=== PATIENT | male | born 1960 | race African-American/Black ===

== ENCOUNTER 2018-05-21 20:07 | Emergency (ER) | payer OTHER | END 2018-05-22 01:00 | disposition home or self-care (01) | LOC: JER 05-22 01:00 ==

== ENCOUNTER 2018-10-13 05:22 | Emergency (ER) | payer OTHER ==
[2018-10-13 06:03] VITALS: BP 142/85; PULSE 60; TEMP 98.5; BMI 34.4
[2018-10-13] MEDS ORDERED: ACETAMINOPHEN 500 MG TABLET (FP) PO ONE (06:13)
--- NOTE | 2018-10-13 06:13 | PDOC ---
History of Present Illness - General Stated Complaint: NECK/ARM PAIN Time Seen by Provider: 10/13/18 05:54 History Source: Patient, Old Records Exam Limitations: No Limitations - History of Present Illness Initial Comments: 10/13/18 06:15 HISTORY OF PRESENT ILLNESS: This is a 58-year-old male with past medical history of paroxysmal A. fib, bilateral knee surgeries, cholecystectomy, mitral valve replacement 2013, lumbar discectomy presents emergency room for evaluation of upper back pain radiating to his right arm. Patient reports pain has been present for the past 2 days he describes as a tightness with a shooting sensation into his shoulder and radiating down his right arm. Patient denies any numbness or tingling or loss of strength. Patient denies trauma, fevers, chills, shortness of breath, headache, blurry vision or dizziness. No recent travel or sick contacts. PAST MEDICAL HISTORY: see HPI SURGICAL HISTORY: see HPI ALLERGIES: No known drug allergies REVIEW OF SYSTEMS General/Constitutional: Denies fever or chills. Denies weakness, weight change. HEENT: Denies change in vision. Denies ear pain or discharge. Denies sore throat. Cardiovascular: Denies chest pain or shortness of breath. Respiratory: Denies cough, wheezing, or hemoptysis. Gastrointestinal: Denies nausea, vomiting, diarrhea or constipation. Denies rectal bleeding. Genitourinary: Denies dysuria, frequency, or change in urination. Musculoskeletal: see HPI Skin and breasts: Denies rash or easy bruising. Neurologic: Denies headache, vertigo, loss of consciousness, or loss of sensation. Psychiatric: Denies depression or anxiety. Endocrine: Denies increased thirst. Denies abnormal weight change. Hematologic/Lymphatic: Denies anemia, easy bleeding, or history of blood clots. Allergic/Immunologic: Denies hives or skin allergy. Denies latex allergy. PHYSICAL EXAM General Appearance: Well-appearing, appropriately dressed. No apparent distress , no intoxication. HEENT: EOMI, PERRLA, normal ENT inspection, normal voice, TMs normal, pharynx normal. No conjunctival pallor. No photophobia, scleral icterus. Neck: Supple. Trachea midline. No tenderness, rigidity, carotid bruit, stridor , lymphadenopathy, or thyromegaly. Full active range of motion. Respiratory/Chest: Lungs CTAB. No shortness of breath, chest tenderness, respiratory distress, accessory muscle use. No crackles, rales, rhonchi, stridor , wheezing, dullness Cardiovascular: RRR. S1, S2. No JVD, murmur, bradycardia, tachycardia. Vascular Pulses: Dorsalis-Pedis (R): 2+, Dorsalis-Pedis (L): 2+ Musculoskeletal/Extremities: Normal inspection. FROM of all extremities, normal capillary refill. Palpable muscle spasm noted in the right trapezius. No bony tenderness upon palpation of the scapula, humerus, clavicle or thoracic and cervical spines. Integumentary: Appropriate color, dry, warm. No cyanosis, erythema, jaundice or rash Neurologic: allergist/immunologist II-XII intact. Fully oriented, alert. Appropriate mood/affect. Motor strength 5/5. No appreciable EOM palsy, facial droop or sensory deficit. Past History - Past Medical History Allergies/Adverse Reactions: Allergies Allergy/AdvReac Type Severity Reaction Status Date / Time immune globulin,gamma (IgG) Allergy Verified 05/21/18 20:25 human [Immu Globulin,Gamma (IGG)] gammaglobulin -> rash Allergy Mild Rash Uncoded 05/21/18 20:25 Home Medications: Ambulatory Orders Aspirin Coated [Ecotrin -] 81 mg PO DAILY 04/04/14 Metoprolol Tartrate 50 mg PO BID 04/04/14 Methocarbamol [Robaxin -] 1,500 mg PO Q8H PRN #30 tablet 10/13/18 Asthma: No Cancer: No Cardiac Disorders: Yes (A-FIB) CVA: No COPD: No CHF: No Dementia: No Diabetes: No GI Disorders: No Disorders: No HTN: No Hypercholesterolemia: No Liver Disease: No Seizures: No Thyroid Disease: No - Surgical History Abdominal Surgery: No Appendectomy: No Cardiac Surgery: Yes (open heart sx 2012 with valve placement) Cholecystectomy: No Lung Surgery: No Neurologic Surgery: No Orthopedic Surgery: Yes (left anfd right knee sx,discectomy) - Immunization History Immunization Up to Date: Yes - Suicide/Smoking/Psychosocial Hx Smoking Status: No Smoking History: Never smoked Have you smoked in the past 12 months: No Number of Cigarettes Smoked Daily: 0 Cigars Per Day: 0 Hx Alcohol Use: No Drug/Substance Use Hx: No Substance Use Type: None Hx Substance Use Treatment: No *Physical Exam - Vital Signs Last Vital Signs Temp Pulse Resp BP Pulse Ox 98.5 F 60 20 142/85 98 10/13/18 06:00 10/13/18 06:00 10/13/18 06:00 10/13/18 06:00 10/13/18 06:00 Medical Decision Making - Medical Decision Making 10/13/18 06:20 A/P: 58-year-old male with muscle spasms in the right trapezius Patient lives in [place] and will be driving home today. I will defer any narcotic medication or muscle relaxers. Recent labs reveals slightly elevated creatinine level hold off on NSAIDs. Tylenol 975 mg orally now Decadron 10 mg orally now We'll discharge the patient home with prescription for Robaxin which she has refills at his pharmacy in [place]. *DC/Admit/Observation/Transfer Diagnosis at time of Disposition: Muscle spasm of back - Discharge Dispostion Disposition: HOME Condition at time of disposition: Stable Decision to Admit order: No - Prescriptions Prescriptions: Methocarbamol [Robaxin -] 1,500 mg PO Q8H PRN #30 tablet PRN Reason: Muscle Spasms - Referrals Referrals: Adan Calderón MD [Primary Care Provider] - - Patient Instructions Additional Instructions: Rest, no heavy lifting or exercise until pain is resolved Hot soaks to neck and low back as often as possible/hot showers or Jacuzzis No massage or therapy until spasm is gone Continue tylenol 2-500 mg tablets every 6 hours for the next 3 days then as needed for pain and swelling Robaxin 1500mg every 8 hours as needed for spasm If not significant improvement within 24 hours with medication and rest regime, followup with private physician for change in medications and /or therapy. - Post Discharge Activity Forms/Work/School Notes: Back to Work
[2018-10-13] MEDS ORDERED: DEXAMETHASONE LIQUID 0.5 MG/5 ML 240 ML BULK BOTTLE PO ONE (06:14)
[2018-10-13] MEDS ORDERED: DEXAMETHASONE SOD PHOSPHATE 10 MG/1 ML VIAL ONE (06:19)
[2018-10-13] MEDS ORDERED: ACETAMINOPHEN 325 MG TABLET (FP) ONE (06:19)
== END 2018-10-13 06:53 | disposition home or self-care (01) ==
LOC: JER 05:22
DX: M62.830 Muscle spasm of back (principal); I48.0 Paroxysmal atrial fibrillation; Z79.01 Long term (current) use of anticoagulants; Z95.4 Presence of other heart-valve replacement
CPT/HCPCS: 99281-25

== ENCOUNTER 2019-10-29 06:54 | Day surgery (SDC) | payer OTHER ==
[2019-10-24 11:12] VITALS: BMI 34.4
[2019-10-29] MEDS ORDERED: MIDAZOLAM HCL 2 MG/2 ML SINGLE DOSE VIAL ONE (07:39)
[2019-10-29 08:40] VITALS: TEMP 98
[2019-10-29 09:31] VITALS: BP 116/67; PULSE 61
--- NOTE | 2019-10-29 09:53 | EKG ---
Test Reason : Blood Pressure : / mmHG Vent. Rate : 059 BPM Atrial Rate : 059 BPM P-R Int : 164 ms QRS Dur : 082 ms QT Int : 482 ms P-R-T Axes : 059 041 054 degrees QTc Int : 477 ms SINUS BRADYCARDIA NONSPECIFIC T WAVE ABNORMALITY PROLONGED QT ABNORMAL ECG Confirmed by MD LORENA, TERRELL ([id number]) on 10/29/2019 9:52:35 AM Referred By: Satya CHILDERS Confirmed By:TERRELL CARRILLO MD
== END 2019-10-29 09:32 | disposition home or self-care (01) ==
LOC: JASU-ENDO 06:54
PROVIDERS: ATTEND Internal Medicine Cardiovascular Disease
PROC: 5A2204Z Restoration of Cardiac Rhythm, Single (ICD-10-PCS; principal; 2019-10-29 08:00)
DX: I48.91 Unspecified atrial fibrillation (principal)
CPT/HCPCS: 92960; 93005; 93010

== ENCOUNTER 2019-11-07 19:02 | Inpatient (IN) | payer OTHER ==
--- NOTE | 2019-11-07 19:26 | PDOC ---
History of Present Illness - General Chief Complaint: Shortness of Breath Stated Complaint: SHORTNESS OF BREATH Time Seen by Provider: 11/07/19 19:25 - History of Present Illness Initial Comments: Patient is a 59 YOM h/o atrial fibrillation s/p valve repair surgery many years prior presents with palpatations of since this afternoon. Patient reports that 9 days prior to arrival he received cardioversion for atrial fibrillation. He has felt fine since then until this afternoon when he came to work and began to feel "tachycardic". He came to the ED for evaluation. He reports that he takes metoprolol which he took today and eloquis for thrombosis prophylaxis. He says he feels slightly short of breath and also mentions a recent bout of diarrhea earlier today. He denies CP, N/V, fever or chills. Constitutional: No Weight Change, No Fever, No Chills, No Night Sweats, No Fatigue, No Malaise ENT/Mouth: No Hearing Changes, No Ear Pain, No Nasal Congestion, No Sinus Pain, No Hoarseness, No sore throat, No Rhinorrhea, No Swallowing Difficulty Eyes: No Eye Pain, No Swelling, No Redness, No Foreign Body, No Discharge, No Vision Changes Cardiovascular: No Chest Pain, mild SOB, No PND, No Dyspnea on Exertion, No Orthopnea, No Claudication, No Edema, yes Palpitations Respiratory: No Cough, No Sputum, No Wheezing, No Smoke Exposure, No Dyspnea Gastrointestinal: No Nausea, No Vomiting, No Diarrhea, No Constipation, No Pain, No Heartburn, No Anorexia, No Dysphagia, No Hematochezia, No Melena, No Flatulence, No Jaundice Genitourinary: No Dysmenorrhea, No DUB, No Dyspareunia, No Dysuria, No Urinary Frequency, No Hematuria, No Urinary Incontinence, No Urgency, No Flank Pain, No Urinary Flow Changes, No Hesitancy Musculoskeletal: No Arthralgias, No Myalgias, No Joint Swelling, No Joint Stiffness, No Back Pain, No Neck Pain, No Injury History Skin: No Skin Lesions, No Pruritis, No Hair Changes, No Breast/Skin Changes, No Nipple Discharge Neuro: No Weakness, No Numbness, No Paresthesias, No Loss of Consciousness, No Syncope, No Dizziness, No Headache, No Coordination Changes, No Recent Falls Psych: No Anxiety/Panic, No Depression, No Insomnia, No Personality Changes, No Delusions, No Rumination, No SI/HI/AH/VH, No Social Issues, No Memory Changes, No Violence/Abuse Hx., No Eating Concerns Heme/Lymph: No Bruising, No Bleeding, No Transfusions History, No Lymphadenopathy Endocrine: No Polyuria, No Polydipsia, No Temperature Intolerance 11/07/19 23:07 Past History - Medical History Allergies/Adverse Reactions: Allergies Allergy/AdvReac Type Severity Reaction Status Date / Time immune globulin,gamma (IgG) Allergy Verified 11/07/19 19:14 human [Immu Globulin,Gamma (IGG)] gammaglobulin -> rash Allergy Mild Rash Uncoded 11/07/19 19:14 Home Medications: Ambulatory Orders Apixaban [Eliquis -] 5 mg PO BID #60 tablet 09/14/19 Dronedarone HCl [Multaq] 400 mg PO BID 10/22/19 Metoprolol Succinate [Toprol XL -] 100 mg PO BID 10/22/19 Amiodarone HCl 200 mg PO BID #1 tablet 10/29/19 Anemia: No Asthma: No Cancer: No Cardiac Disorders: Yes (ATRIAL FIBRILLATION,MITRAL VALVE REGURGITATION,PROLAPSE) CVA: No COPD: No CHF: No Dementia: No Diabetes: No GI Disorders: Yes Disorders: No HTN: No Hypercholesterolemia: No Liver Disease: No Seizures: No Thyroid Disease: No - Surgical History Abdominal Surgery: No Appendectomy: No Cardiac Surgery: Yes (S/P MITRAL VALVE REPAIR) Cholecystectomy: Yes Lung Surgery: No Neurologic Surgery: No Orthopedic Surgery: Yes (left anfd right knee sx,discectomy) - Immunization History Immunization Up to Date: Yes - Psycho-Social/Smoking History Smoking Status: No Smoking History: Never smoked Have you smoked in the past 12 months: No Number of Cigarettes Smoked Daily: 0 Cigars Per Day: 0 Information on smoking cessation initiated: No - Substance Abuse Hx (Audit-C & DAST Scrn) How often the patient has a drink containing alcohol: Never Score: In Men: 4 or > Positive; In Women: 3 or > Positive: 0 Screen Result (Pos requires Nsg. Audit-10AR): Negative In the last yr the pt used illegal drug/Rx for NonMed reason: No Score: Yes response is considered Positive: 0 Screen Result (Positive result requires Nsg. DAST-10): Negative *Physical Exam - Vital Signs Last Vital Signs Temp Pulse Resp BP Pulse Ox 98.2 F 121 H 22 H 125/93 97 11/07/19 19:14 11/07/19 19:14 11/07/19 19:14 11/07/19 19:14 11/07/19 19:14 - Physical Exam General Appearance: Yes: Nourished, Appropriately Dressed HEENT: positive: EOMI, ALFONSO Neck: positive: Trachea midline, Normal Thyroid Respiratory/Chest: positive: Lungs Clear, Normal Breath Sounds Cardiovascular: positive: Regular Rhythm, Regular Rate, S1, S2 Gastrointestinal/Abdominal: positive: Normal Bowel Sounds, Flat, Soft Musculoskeletal: positive: Normal Inspection Extremity: positive: Normal Capillary Refill, Normal Inspection, Normal Range of Motion Integumentary: positive: Normal Color, Dry, Warm Neurologic: positive: corporate lawyer II-XII NML intact, Fully Oriented, Normal Response, Motor Strength 5/5 ED Treatment Course - LABORATORY CBC & Chemistry Diagram: 11/07/19 20:18 11/07/19 20:18 Medical Decision Making - Medical Decision Making Patient is a 59 YOM h/o atrial fibrillation s/p valve repair surgery many years prior presents with palpatations of since this afternoon. Patient reports that 9 days prior to arrival he received cardioversion for atrial fibrillation. He has felt fine since then until this afternoon when he came to work and began to feel "tachycardic". He came to the ED for evaluation. He reports that he takes metoprolol which he took today and eloquis for thrombosis prophylaxis. He says he feels slightly short of breath and also mentions a recent bout of diarrhea earlier today. He denies CP, N/V, fever or chills. Patients HR was 110-120s on arrival, O2 saturation was 98% on room air, vitals were otherwise wnl. Physical exam was unremarkable. ddx includes but is not limited to: Afib with RVR, atrial flutter, sinus tachycardia, dehydration. plan: EKG, CXR, cardiac profile, CBC, CMP, COVID-19 swab,Will consult his tool shaper setup operator, Dr Marcelo and appreciate his recommendations. reassess: EKG demonstrated atrial flutter in leads V1 and V2. Spoke with Dr Marcelo who reviewed the patients EKG and mentioned that in V1 there was an inflection after the Q wave with a saw tooth morphology also observable in V2, he recommended that the patients metoprolol be increased to 100mgs BID, Amiodarone 200mgs BID, and be admitted for tele obs. Labs were wnl. dispo: admit patient for telemetry. Discharge - Discharge Information Problems reviewed: Yes Clinical Impression/Diagnosis: Atrial flutter - Follow up/Referral - Patient Discharge Instructions - Post Discharge Activity
[2019-11-07] MEDS ORDERED: SODIUM CHLORIDE 0.9% 500 ML INFUS.BAG IV ONE (20:01)
[2019-11-07 20:34] LABS: BASO % 0.8 % (0-2.0); EOS % 2.5 % (0-4.5); HEMATOCRIT 44.6 % (35.4-49); HEMOGLOBIN 14.7 GM/dL (11.7-16.9); LYMPH % 19.2 % (8-40); MCHC 32.9 g/dl (32.0-35.9); MEAN CELL VOLUME 91.1 fl (80-96); MEAN PLT VOLUME 8.3 fl (7.5-11.1); MONO % 9.9 % (3.8-10.2); NEUT % 67.6 % (42.8-82.8); PLATELET COUNT 172 K/MM3 (134-434); RDW 13.8 % (11.9-15.9); WHITE BLOOD COUNT 8.1 K/mm3 (4.0-10.0)
[2019-11-07 20:50] LABS: ALBUMIN 3.7 g/dl (3.4-5.0); ALK PHOS 62 U/L (45-117); ANION GAP 7 MMOL/L (8-16); BILIRUBIN,TOTAL 0.7 mg/dL (0.2-1); BLOOD UREA NITROGEN 9.6 mg/dL (7-18); CALCIUM 8.2 mg/dL (8.5-10.1); CHLORIDE 112 mmol/L (98-107); CO2 25 mmol/L (21-32); CREATININE 1.4 mg/dL (0.55-1.3); GLUCOSE,RANDOM 87 mg/dL (74-106); POTASSIUM 3.7 mmol/L (3.5-5.1); SGOT/AST 19 U/L (15-37); SGPT/ALT 24 U/L (13-61); SODIUM 144 mmol/L (136-145); TOT PROT 6.9 g/dl (6.4-8.2)
--- NOTE | 2019-11-07 20:52 | PDOC ---
Attending Attestation - Resident Resident Name: Myles Lockwood - ED Attending Attestation I have performed the following: I have examined & evaluated the patient, The case was reviewed & discussed with the resident, I agree w/resident's findings & plan, Exceptions are as noted - HPI HPI: 11/08/19 02:01 See resident HPI - Physicial Exam PE: 11/08/19 02:01 Agree with documented exam - Medical Decision Making 11/08/19 02:01 59M with paroxysmal AFIB on amio and metoprolol, eliquis for AC, here with recurrent AFib/flutter with RVR after recent DCCV. Pt endorsing palpitations, but no cp, sob f/u labs, cxr, ekg Rate reduced to 100-110s with po Metoprolol in consultation with Pts computer scientist Dr. Marcelo, dispo will be to admit to tele obs Discharge - Discharge Information Problems reviewed: Yes Clinical Impression/Diagnosis: Atrial flutter - Follow up/Referral - Patient Discharge Instructions - Post Discharge Activity
--- NOTE | 2019-11-08 00:51 | HP ---
Admitting History and Physical - Primary Care Physician PCP: Adan Calderón - Admission Chief Complaint: Palpitations, SOB, Diarrhea History of Present Illness: This is a 59 y/o male with a PMHx of Atrial Fibrillation s/p valve repair surgery (2012) s/p Cardioversion (9 days ago), Chronic Back Pain. Who presents to the ED with palpitations x yesterday afternoon. Patient reports feeling well since the recent Cardioversion, then this afternoon while at work he began to having palpitations with SOB. 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 He reports taking his metoprolol and Eliquis, today for thrombosis prophylaxis. he reports having an episode of diarrhea, his last meal consisted of hot dogs and meatballs from home. Patient denies fever, chills, dizziness, PÉREZ, CP, AP, N/V, melena, hematochezia, dysuria. History Source: Patient Limitations to Obtaining History: No Limitations - Past Medical History Cardiovascular: Yes: AFIB, HTN. No: CAD, CHF, Deep Vein Thrombosis, [place] Gastrointestinal: Yes: Constipation, Hemorrhoids. No: Gastritis, GERD, Peptic Ulcer Disease Musculoskeletal: Yes: Chronic low back pain (h/o acute back pain from injury) - Past Surgical History Past Surgical History: Yes: Cholecystectomy, Tonsillectomy, Valve Replacement (S/P Thoracotomy at [facility] in 2012) Additional Past Surgical History: Lumbar Discectomy R- Knee FB removal Bilateral Knee- Lateral Release - Smoking History Smoking history: Never smoked Have you smoked in the past 12 months: No Aproximately how many cigarettes per day: 0 - Alcohol/Substance Use Hx Alcohol Use: No History of Substance Use: reports: None - Social History Usual Living Arrangement: Yes: With Spouse Do you think of yourself as: Straight/Heterosexual ADL: Independent Occupation: Injection Molding Machine Tender- [employer] History of Recent Travel: No Home Medications - Allergies Allergies/Adverse Reactions: Allergies Allergy/AdvReac Type Severity Reaction Status Date / Time immune globulin,gamma (IgG) Allergy Verified 11/07/19 19:14 human [Immu Globulin,Gamma (IGG)] gammaglobulin -> rash Allergy Mild Rash Uncoded 11/07/19 19:14 - Home Medications Home Medications: Ambulatory Orders Apixaban [Eliquis -] 5 mg PO BID #60 tablet 09/14/19 Dronedarone HCl [Multaq] 400 mg PO BID 10/22/19 Metoprolol Succinate [Toprol XL -] 100 mg PO BID 10/22/19 Amiodarone HCl 200 mg PO BID #1 tablet 10/29/19 Family Medical History Family Hx Congestive Heart Failure: Father (), Sister Other Family History: Heart Disease- Paternal Aunt, Maternal Uncles Review of Systems - Review of Systems Constitutional: reports: No Symptoms Eyes: reports: No Symptoms HENT: reports: No Symptoms Neck: reports: No Symptoms Cardiovascular: reports: Palpitations, Shortness of Breath Respiratory: reports: SOB Gastrointestinal: reports: Diarrhea Genitourinary: reports: No Symptoms Breasts: reports: No Symptoms Reported Musculoskeletal: reports: No Symptoms Integumentary: reports: No Symptoms Neurological: reports: No Symptoms Endocrine: reports: No Symptoms Hematology/Lymphatic: reports: No Symptoms Psychiatric: reports: No Symptoms Physical Examination Vital Signs: Vital Signs Temperature 98.2 F 11/07/19 23:30 Pulse Rate 95 H 11/07/19 23:30 Respiratory Rate 23 H 11/07/19 23:30 Blood Pressure 142/95 11/07/19 23:30 O2 Sat by Pulse Oximetry (%) 100 11/07/19 23:30 Constitutional: Yes: Well Nourished, No Distress, Calm, Obese Eyes: Yes: WNL, Conjunctiva Clear, EOM Intact, PERRL HENT: Yes: WNL, Atraumatic, Normocephalic Neck: Yes: WNL, Supple, Trachea Midline Cardiovascular: Yes: Pulse Irregular, S1, S2 Respiratory: Yes: WNL, Regular, CTA Bilaterally Gastrointestinal: Yes: WNL, Normal Bowel Sounds, Soft, Abdomen, Obese ...Rectal Exam: Yes: Deferred Renal/: Yes: WNL Breast(s): Yes: WNL Musculoskeletal: Yes: WNL Extremities: Yes: WNL Edema: No Peripheral Pulses WNL: Yes Neurological: Yes: WNL, Alert, Oriented ...Motor Strength: WNL Psychiatric: Yes: WNL, Alert, Oriented Labs: CBC, BMP 11/07/19 20:18 11/07/19 20:18 Imaging - Results Chest X-ray: Image Reviewed EKG: Image Reviewed Problem List - Problems (1) Atrial flutter Assessment/Plan: with RVR Continue cardiac monitoring Metoprolol given in ED EKG- atrial flutter with 2:1 AV conduction Appreciate Cardiology consult Serial Enzymes Continue Metoprolol, Amiodarone, per Cardiology recommendation Monitor CMP Code(s): I48.92 - UNSPECIFIED ATRIAL FLUTTER (2) Palpitations Assessment/Plan: see above Code(s): R00.2 - PALPITATIONS (3) A-fib Assessment/Plan: s/p AVR s/p Cardioversion [id number] 3 EKG reviewed Continue home meds with parameters Code(s): I48.91 - UNSPECIFIED ATRIAL FIBRILLATION (4) HTN (hypertension) Assessment/Plan: sub optimal Continue Metoprolol Monitor renal function Code(s): I10 - ESSENTIAL (PRIMARY) HYPERTENSION (5) Encounter for screening laboratory testing for COVID-19 virus Assessment/Plan: SMART-SOAKER HIDES 1, low risk Covid PCR-pending Isolation Precautions Code(s): Z11.59 - ENCOUNTER FOR SCREENING FOR OTHER VIRAL DISEASES Assessment/Plan This is a 59 y/o male with a PMHx of Atrial Fibrillation s/p valve repair surgery (2012) s/p Cardioversion (9 days ago), Chronic Back Pain. Admitted to Telemetry for Aflutter with RVR, YULIYA for further evaluation of their emergent condition. Plan: See Problem List FEN PO fluids as tolerated Replete lytes prn Low Na Diet DVT ppx OOB SCDs Continue Eliquis Dispo: Requires Inpatient Care Visit type - Emergency Visit Emergency Visit: Yes ED Registration Date: 11/07/19 Care time: The patient presented to the Emergency Department on the above date and was hospitalized for further evaluation of their emergent condition. - New Patient This patient is new to me today: Yes Date on this admission: 11/08/19 - Critical Care Critical Care patient: No
[2019-11-08 06:06] LABS: BASO % 0.7 % (0-2.0); HEMATOCRIT 46.7 % (35.4-49); HEMOGLOBIN 15.4 GM/dL (11.7-16.9); MCH 29.8 pg (25.7-33.7); MEAN CELL VOLUME 90.4 fl (80-96); NEUT % 63.3 % (42.8-82.8); PLATELET COUNT 185 K/MM3 (134-434); RBC 5.17 M/mm3 (4.00-5.60); WHITE BLOOD COUNT 7.2 K/mm3 (4.0-10.0)
[2019-11-08 06:33] LABS: ALBUMIN 3.8 g/dl (3.4-5.0); BILIRUBIN,TOTAL 0.6 mg/dL (0.2-1); CALCIUM 8.1 mg/dL (8.5-10.1); CREATININE 1.2 mg/dL (0.55-1.3); MAGNESIUM 2.5 mg/dL (1.8-2.4); POTASSIUM 3.9 mmol/L (3.5-5.1); TOT PROT 7.1 g/dl (6.4-8.2)
--- NOTE | 2019-11-08 09:34 | PN ---
Progress Note (short form) - Note Progress Note: Pt is a 59 y.o. male with a h/o paroxysmal atrial fibrillation,s/p DCCV last week, mitral valve prolapse s/p repair 03/2013, gallstones, biliary colic with passed CBD stone s/p lap cholecystectomy, started feeling palpitations and some SOB >>ER found to be in AFl; No CP, edema,fever,cough. Rate rather controlled, on amio/metoprolol and been on AC. - History Source History Provided By: Patient Limitations to Obtaining History: No Limitations Social History Usual Living Arrangement: Yes: With Spouse Do you think of yourself as: Straight/Heterosexual ADL: Independent Occupation: Supervisor Cd Area- [employer] History of Recent Travel: No - Allergies Allergies/Adverse Reactions: Allergies Allergy/AdvReac Type Severity Reaction Status Date / Time immune globulin,gamma (IgG) Allergy Verified 11/07/19 19:14 human [Immu Globulin,Gamma (IGG)] gammaglobulin -> rash Allergy Mild Rash Uncoded 11/07/19 19:14 - Home Medications Home Medications: Ambulatory Orders Apixaban [Eliquis -] 5 mg PO BID #60 tablet 09/14/19 Dronedarone HCl [Multaq] 400 mg PO BID 10/22/19 Metoprolol Succinate [Toprol XL -] 100 mg PO BID 10/22/19 Amiodarone HCl 200 mg PO BID #1 tablet 10/29/19 Family Medical History Family Hx Congestive Heart Failure: Father (), Sister Other Family History: Heart Disease- Paternal Aunt, Mate - Review of Systems All negative except above Vital Signs: Vital Signs Temperature 97.9 F 11/08/19 06:16 Pulse Rate 78 11/08/19 06:16 Respiratory Rate 18 11/08/19 06:16 Blood Pressure 122/81 11/08/19 06:16 O2 Sat by Pulse Oximetry (%) 98 11/08/19 06:16 Constitutional: Yes: No Distress, Calm Neck: Yes: Supple Respiratory: Yesr, CTA Bilaterally Gastrointestinal: Yes: Normal Bowel Sounds, Soft, obese Cardiovascular: IRRR, S1S2,no M/Cl/G/R JVD: No Carotid Bruit: No Edema: No - Other Data Labs, Other Data: CBC, BMP 11/08/19 05:33 11/08/19 05:33 Troponin, BNP 11/07/19 20:18 Troponin I < 0.02 Active Medications Amiodarone HCl (Cordarone -) 200 mg PO BID RADHA Apixaban (Eliquis -) 5 mg PO BID RADHA Metoprolol Succinate (Toprol Xl -) 100 mg PO BID RADHA Ejection Fraction %: LVEF > or = 40 % Imaging - Results Chest X-ray: Report Reviewed (NAD) Problem List - Problems (1) Palpitations Code(s): R00.2 - PALPITATIONS (2) Rapid atrial fibrillation Code(s): I48.91 - UNSPECIFIED ATRIAL FIBRILLATION (3) Dyspnea on exertion Code(s): R06.09 - OTHER FORMS OF DYSPNEA (4) S/P mitral valve repair Code(s): Z98.890 - OTHER SPECIFIED POSTPROCEDURAL STATES (5) Diastolic dysfunction Code(s): I51.89 - OTHER ILL-DEFINED HEART DISEASES Assessment/Plan 05/08/2018 No ischemia, LVEF 53% 06/10/2019 Echo: Normal LV and RV size and fxn, mild RICHARD, mild TR RVSP 22 mmHg, TN, tr MR 1. AFL, 2-AFb, s/p DCCV 3. Diastolic dysfunction 4. Mitral valve prolapse with severe regurgitation, post MV repair 45 H/o lap cholecystectomy for acute cholecystitis with resolved choledocholithiasis, resolving chemical pancreatitis PLAN: -As discussed with Dr Marcelo, pt's sole skiver and patient DCCV catrachita be done today at 2pm (pt has been fully anticoagulated for months now) -Educated on Afb/Afl, and possible ablation if frequent recurrences -Cont Amio/Metoprolol and Eloquis
[2019-11-08] MEDS ORDERED: AMIODARONE HCL 200 MG TABLET PO SCH (10:00)
[2019-11-08] MEDS ORDERED: APIXABAN 5 MG TABLET ONE (10:05)
[2019-11-08] MEDS ORDERED: AMIODARONE HCL 200 MG TABLET ONE (10:05)
[2019-11-08] MEDS: APIXABAN 5 MG TABLET PO SCH ×2 (10:23→22:29)
--- NOTE | 2019-11-08 11:02 | PN ---
Progress Note, Physician Chief Complaint: pt seen/ examined in Er. Chart is reviewed. Awake/ comfortable. For Cardioversion scheduled today - Current Medication List Current Medications: Active Medications Amiodarone HCl (Cordarone -) 200 mg PO BID [facility] Last Admin: 11/08/19 10:23 Dose: 200 mg Documented by: Apixaban (Eliquis -) 5 mg PO BID [facility] Last Admin: 11/08/19 10:23 Dose: 5 mg Documented by: Metoprolol Succinate (Toprol Xl -) 100 mg PO BID [facility] Last Admin: 11/08/19 10:23 Dose: 100 mg Documented by: - Objective Vital Signs: Vital Signs Temperature 97.9 F 11/08/19 06:16 Pulse Rate 89 11/08/19 10:12 Respiratory Rate 11/08/19 10:12 Blood Pressure 131/88 11/08/19 10:12 O2 Sat by Pulse Oximetry (%) 100 11/08/19 10:13 Constitutional: Yes: No Distress Eyes: Yes: Conjunctiva Clear Neck: Yes: Supple Cardiovascular: Yes: Pulse Irregular Edema: No Neurological: Yes: Alert Labs: CBC, BMP 11/08/19 05:33 11/08/19 05:33 Problem List - Problems (1) Atrial flutter Code(s): I48.92 - UNSPECIFIED ATRIAL FLUTTER (2) HTN (hypertension) Code(s): I10 - ESSENTIAL (PRIMARY) HYPERTENSION Assessment/Plan Clinically Stable. Continue Present care Meds reviewed For Cardioversion today D/w Rn also Will follow Covid is Pending
--- NOTE | 2019-11-08 11:13 | EKG ---
Test Reason : Blood Pressure : / mmHG Vent. Rate : 087 BPM Atrial Rate : 220 BPM P-R Int : 000 ms QRS Dur : 076 ms QT Int : 410 ms P-R-T Axes : 113 034 043 degrees QTc Int : 493 ms POOR DATA QUALITY, INTERPRETATION MAY BE ADVERSELY AFFECTED ATRIAL FLUTTER WITH VARIABLE A-V BLOCK LOW VOLTAGE QRS NONSPECIFIC ST AND T WAVE ABNORMALITY ABNORMAL ECG WHEN COMPARED WITH ECG OF 07-NOV-2019 19:29, NONSPECIFIC T WAVE ABNORMALITY NO LONGER EVIDENT IN LATERAL LEADS Confirmed by JOSÉ CHAMBERLAIN MD ([id number]) on 11/08/2019 11:13:15 AM Referred By: Confirmed By:JOSÉ CHAMBERLAIN MD
--- NOTE | 2019-11-08 11:16 | EKG ---
Test Reason : Blood Pressure : / mmHG Vent. Rate : 119 BPM Atrial Rate : 238 BPM P-R Int : 000 ms QRS Dur : 080 ms QT Int : 272 ms P-R-T Axes : 213 053 065 degrees QTc Int : 382 ms ATRIAL FLUTTER WITH 2:1 A-V CONDUCTION NONSPECIFIC ST AND T WAVE ABNORMALITY ABNORMAL ECG Confirmed by JOSÉ CHAMBERLAIN MD ([id number]) on 11/08/2019 11:15:24 AM Referred By: Confirmed By:JOSÉ CHAMBERLAIN MD
[2019-11-08 16:14] VITALS: BMI 36.8
[2019-11-08] MEDS ORDERED: MIDAZOLAM HCL 2 MG/2 ML SINGLE DOSE VIAL ONE (16:27)
[2019-11-08] MEDS ORDERED: PROPOFOL 20 ML ONE ×3 (16:29→18:00)
--- NOTE | 2019-11-08 17:30 | PN ---
Progress Note (short form) - Note Progress Note: Procedure Note Procedure: DCCV cardioversion Indication: Recurrent symptomatic paroxysmal rapid afib After informed consent obtained, risks and benefits of anesthesia and cardioversion reviewed, patient placed in deep sedation by anesthesia with propofol. Successful cardioversion after 150J shock after having failed 120 J shock. Patient aroused by anesthesia, tolerated procedure w/o complications, EKG confirms SR. Change amio to sotalol 80 bid with monitor QTc x 2 days. EP referral as outpatient for PVI.
[2019-11-08] MEDS ORDERED: EPHEDRINE SULFATE/0.9% NACL/PF 50 MG/10 ML SYRINGE NR ONE (18:00)
[2019-11-08] MEDS ORDERED: SUCCINYLCHOLINE CHLORIDE 200 MG/10 ML SYRINGE ONE (18:00)
[2019-11-08] MEDS ORDERED: SOTALOL HCL 80 MG TABLET (FP) PO SCH (22:00)
[2019-11-09] MEDS: APIXABAN 5 MG TABLET PO SCH ×2 (09:04→21:45)
--- NOTE | 2019-11-09 10:44 | PN ---
Progress Note, Physician History of Present Illness: Remains in SR post DCCV, tolerating sotalol. - Current Medication List Current Medications: Active Medications Apixaban (Eliquis -) 5 mg PO BID [facility] Last Admin: 11/09/19 09:04 Dose: 5 mg Documented by: Sotalol HCl (Betapace -) 80 mg PO BID [facility] Last Admin: 11/08/19 22:29 Dose: 80 mg Documented by: - Objective Vital Signs: Vital Signs Temperature 98.7 F 11/09/19 10:00 Pulse Rate 53 L 11/09/19 10:00 Respiratory Rate 18 11/09/19 10:00 Blood Pressure 145/76 11/09/19 10:00 O2 Sat by Pulse Oximetry (%) 97 11/09/19 10:00 Constitutional: Yes: No Distress, Calm Neck: Yes: Supple Cardiovascular: Yes: Bradycardia Respiratory: Yes: Regular, CTA Bilaterally Gastrointestinal: Yes: Normal Bowel Sounds, Soft Edema: No Labs: CBC, BMP 11/08/19 05:33 11/08/19 05:33 - ....Imaging EKG: Report Reviewed (SB @ 54 QTc 502 msec) Assessment/Plan Problem List - Problems (1) Palpitations Code(s): R00.2 - PALPITATIONS (2) Rapid atrial fibrillation Code(s): I48.91 - UNSPECIFIED ATRIAL FIBRILLATION (3) Dyspnea on exertion Code(s): R06.09 - OTHER FORMS OF DYSPNEA (4) S/P mitral valve repair Code(s): Z98.890 - OTHER SPECIFIED POSTPROCEDURAL STATES (5) Diastolic dysfunction Code(s): I51.89 - OTHER ILL-DEFINED HEART DISEASES Assessment/Plan 05/08/2018 No ischemia, LVEF 53% 06/10/2019 Echo: Normal LV and RV size and fxn, mild RICHARD, mild TR RVSP 22 mmHg, [place], tr MR 1. PAFL, PAF s/p DCCV 2. Diastolic dysfunction 3. Mitral valve prolapse with severe regurgitation, post MV repair 4. H/o lap cholecystectomy for acute cholecystitis with resolved choledocholithiasis, resolving chemical pancreatitis 5. Covid 19 negative PLAN: 1. Continue sotalol 80 bid with monitor QTC and telemetry monitoring, Eliquis 5 bid 2. Educated on Afb/Afl, and possible ablation if frequent recurrences
[2019-11-09] MEDS ORDERED: SOTALOL HCL 80 MG TABLET (FP) PO SCH (12:21)
[2019-11-09] MEDS: SOTALOL HCL 80 MG TABLET (FP) PO SCH ×2 (12:31→21:45)
--- NOTE | 2019-11-09 13:05 | PN ---
Progress Note (short form) - Note Progress Note: s/p cardioversion Feels well No dizziness NO chest pain Vital Signs - 24 hr 11/08/19 11/08/19 11/08/19 16:45 17:00 17:15 Temperature 98 F Pulse Rate 50 L 52 L 54 L Respiratory 16 16 18 Rate Blood Pressure 127/82 113/67 113/70 O2 Sat by Pulse 99 10 L 100 Oximetry (%) 11/08/19 11/08/19 11/08/19 18:00 21:00 22:00 Temperature 98.8 F Pulse Rate 61 60 Respiratory 20 18 Rate Blood Pressure 134/77 131/67 O2 Sat by Pulse 100 98 98 Oximetry (%) 11/09/19 11/09/19 11/09/19 02:00 06:00 09:00 Temperature 97.7 F 98.1 F Pulse Rate 55 L 54 L Respiratory 18 18 Rate Blood Pressure 120/58 L 139/84 O2 Sat by Pulse 99 98 97 Oximetry (%) 11/09/19 11/09/19 10:00 14:00 Temperature 98.7 F 98.8 F Pulse Rate 53 L 57 L Respiratory 18 18 Rate Blood Pressure 145/76 143/79 O2 Sat by Pulse 97 96 Oximetry (%) Current Medications Generic Name Dose Route Start Last Admin Trade Name Freq PRN Reason Stop Dose Admin Apixaban 5 mg 11/08/19 10:00 11/09/19 09:04 Eliquis - PO 5 mg BID [facility] Administration Sotalol HCl 80 mg 11/09/19 12:30 11/09/19 12:31 Betapace - PO 80 mg BID [facility] Administration Laboratory Results - last 24 hr 11/08/19 04:54 COVID-19 (SHANTHI) Not detected S1S2 Irregular Lungs clear Abd-soft,NT No edema PLAN stable after cardioversion continue with sotalol continue with Eliquis will monitor telemetry for 24 hours possible dc in AM Problem List - Problems (1) A-fib Code(s): I48.91 - UNSPECIFIED ATRIAL FIBRILLATION (2) HTN (hypertension) Code(s): I10 - ESSENTIAL (PRIMARY) HYPERTENSION (3) Rapid atrial fibrillation Code(s): I48.91 - UNSPECIFIED ATRIAL FIBRILLATION
[2019-11-10] MEDS: APIXABAN 5 MG TABLET PO SCH ×2 (09:03→21:22)
[2019-11-10] MEDS: SOTALOL HCL 80 MG TABLET (FP) PO SCH ×2 (09:03→21:22)
--- NOTE | 2019-11-10 10:47 | PN ---
Progress Note, Physician History of Present Illness: Remains in SR post DCCV, tolerating sotalol. - Current Medication List Current Medications: Active Medications Apixaban (Eliquis -) 5 mg PO BID [facility] Last Admin: 11/10/19 09:03 Dose: 5 mg Documented by: Sotalol HCl (Betapace -) 80 mg PO BID [facility] Last Admin: 11/10/19 09:03 Dose: 80 mg Documented by: - Objective Vital Signs: Vital Signs Temperature 97.3 F L 11/10/19 06:00 Pulse Rate 53 L 11/10/19 06:00 Respiratory Rate 18 11/10/19 06:00 Blood Pressure 112/68 11/10/19 06:00 O2 Sat by Pulse Oximetry (%) 96 11/10/19 02:00 Constitutional: Yes: No Distress, Calm Neck: Yes: Supple Cardiovascular: Yes: Bradycardia Respiratory: Yes: Regular, CTA Bilaterally Gastrointestinal: Yes: Normal Bowel Sounds, Soft, Abdomen, Obese Edema: No Labs: CBC, BMP 11/08/19 05:33 11/08/19 05:33 - ....Imaging EKG: Report Reviewed (SB @ 57 QTc 506 msec) Assessment/Plan Problem List - Problems (1) Palpitations Code(s): R00.2 - PALPITATIONS (2) Rapid atrial fibrillation Code(s): I48.91 - UNSPECIFIED ATRIAL FIBRILLATION (3) Dyspnea on exertion Code(s): R06.09 - OTHER FORMS OF DYSPNEA (4) S/P mitral valve repair Code(s): Z98.890 - OTHER SPECIFIED POSTPROCEDURAL STATES (5) Diastolic dysfunction Code(s): I51.89 - OTHER ILL-DEFINED HEART DISEASES Assessment/Plan 05/08/2018 No ischemia, LVEF 53% 06/10/2019 Echo: Normal LV and RV size and fxn, mild RICHARD, mild TR RVSP 22 mmHg, [place], tr MR 1. PAFL, PAF s/p DCCV 2. Diastolic dysfunction 3. Mitral valve prolapse with severe regurgitation, post MV repair 4. H/o lap cholecystectomy for acute cholecystitis with resolved choledocholithiasis, chemical pancreatitis 5. Covid 19 negative PLAN: 1. Continue sotalol 80 bid with monitor QTC and telemetry monitoring, Eliquis 5 bid, add losartan 25 qd 2. Educated on Afb/Afl, and possible ablation if frequent recurrences 3. D/c planning in AM with f/u with Dr. Marcelo
[2019-11-10] MEDS: LOSARTAN POTASSIUM 25 MG TABLET PO SCH (15:10)
--- NOTE | 2019-11-10 15:14 | PN ---
Progress Note (short form) - Note Progress Note: s/p cardioversion Feels well No dizziness NO chest pain Vital Signs - 24 hr 11/09/19 11/09/19 11/09/19 18:00 21:00 22:00 Temperature 98.7 F 98.1 F Pulse Rate 53 L 55 L Respiratory 18 18 Rate Blood Pressure 123/68 121/45 L O2 Sat by Pulse 97 96 96 Oximetry (%) 11/10/19 11/10/19 11/10/19 02:00 06:00 09:00 Temperature 97.8 F 97.3 F L Pulse Rate 53 L 53 L Respiratory 18 18 18 Rate Blood Pressure 117/53 L 112/68 O2 Sat by Pulse 96 97 Oximetry (%) 11/10/19 11/10/19 10:00 13:49 Temperature 98.4 F 98.0 F Pulse Rate 55 L 56 L Respiratory 18 18 Rate Blood Pressure 123/76 127/71 O2 Sat by Pulse 97 96 Oximetry (%) Current Medications Generic Name Dose Route Start Last Admin Trade Name Saeq PRN Reason Stop Dose Admin Apixaban 5 mg 11/08/19 10:00 11/10/19 09:03 Eliquis - PO 5 mg BID [facility] Administration Losartan Potassium 25 mg 11/10/19 12:15 11/10/19 15:10 Cozaar - PO 25 mg DAILY [facility] Administration Sotalol HCl 80 mg 11/09/19 12:30 11/10/19 09:03 Betapace - PO 80 mg BID [facility] Administration S1S2 Irregular Lungs clear Abd-soft,NT No edema PLAN stable after cardioversion continue with sotalol continue with Eliquis will monitor telemetry for 24 hours possible dc in AM Problem List - Problems (1) A-fib Code(s): I48.91 - UNSPECIFIED ATRIAL FIBRILLATION (2) HTN (hypertension) Code(s): I10 - ESSENTIAL (PRIMARY) HYPERTENSION (3) Rapid atrial fibrillation Code(s): I48.91 - UNSPECIFIED ATRIAL FIBRILLATION
--- NOTE | 2019-11-10 17:30 | EKG ---
Test Reason : Blood Pressure : / mmHG Vent. Rate : 054 BPM Atrial Rate : 054 BPM P-R Int : 182 ms QRS Dur : 080 ms QT Int : 560 ms P-R-T Axes : 059 065 073 degrees QTc Int : 531 ms SINUS BRADYCARDIA PROLONGED QT ABNORMAL ECG WHEN COMPARED WITH ECG OF 08-NOV-2019 16:39, NO SIGNIFICANT CHANGE WAS FOUND Confirmed by MD Margarito, Wyatt ([id number]) on 11/10/2019 5:29:48 PM Referred By: Confirmed By:Wyatt Pimentel MD
--- NOTE | 2019-11-10 17:35 | EKG ---
Test Reason : Blood Pressure : / mmHG Vent. Rate : 054 BPM Atrial Rate : 054 BPM P-R Int : 152 ms QRS Dur : 080 ms QT Int : 516 ms P-R-T Axes : 031 021 041 degrees QTc Int : 489 ms SINUS BRADYCARDIA NONSPECIFIC T WAVE ABNORMALITY PROLONGED QT ABNORMAL ECG WHEN COMPARED WITH ECG OF 08-NOV-2019 00:06, SINUS RHYTHM HAS REPLACED ATRIAL FLUTTER VENT. RATE HAS DECREASED BY 33 BPM Confirmed by MD Margarito, Wyatt ([id number]) on 11/10/2019 5:35:16 PM Referred By: Confirmed By:Wyatt Pimentel MD
--- NOTE | 2019-11-11 09:26 | EKG ---
Test Reason : Blood Pressure : / mmHG Vent. Rate : 056 BPM Atrial Rate : 056 BPM P-R Int : 162 ms QRS Dur : 084 ms QT Int : 528 ms P-R-T Axes : 064 062 072 degrees QTc Int : 509 ms SINUS BRADYCARDIA T WAVE ABNORMALITY, CONSIDER ANTERIOR ISCHEMIA PROLONGED QT ABNORMAL ECG WHEN COMPARED WITH ECG OF 10-NOV-2019 09:51, NO SIGNIFICANT CHANGE WAS FOUND Confirmed by Danny Bahena ([id number]) on 11/11/2019 9:26:05 AM Referred By: Confirmed By:Danny Bahena
[2019-11-11] MEDS: LOSARTAN POTASSIUM 25 MG TABLET PO SCH (09:35)
[2019-11-11] MEDS: SOTALOL HCL 80 MG TABLET (FP) PO SCH (09:35)
[2019-11-11] MEDS: APIXABAN 5 MG TABLET PO SCH (09:35)
--- NOTE | 2019-11-11 10:54 | PN ---
Progress Note, Physician History of Present Illness: Remains in SR post DCCV, tolerating sotalol. - Current Medication List Current Medications: Active Medications Apixaban (Eliquis -) 5 mg PO BID [facility] Last Admin: 11/11/19 09:35 Dose: 5 mg Documented by: Losartan Potassium (Cozaar -) 25 mg PO DAILY [facility] Last Admin: 11/11/19 09:35 Dose: 25 mg Documented by: Sotalol HCl (Betapace -) 80 mg PO BID [facility] Last Admin: 11/11/19 09:35 Dose: 80 mg Documented by: - Objective Vital Signs: Vital Signs Temperature 97.8 F 11/11/19 06:00 Pulse Rate 47 L 11/11/19 06:00 Respiratory Rate 18 11/11/19 06:00 Blood Pressure 118/73 11/11/19 06:00 O2 Sat by Pulse Oximetry (%) 100 11/11/19 06:00 Constitutional: Yes: No Distress, Calm Neck: Yes: Supple Cardiovascular: Yes: Regular Rate and Rhythm Respiratory: Yes: Regular, CTA Bilaterally Gastrointestinal: Yes: Normal Bowel Sounds, Soft Edema: No Labs: CBC, BMP 11/08/19 05:33 11/08/19 05:33 - ....Imaging EKG: Report Reviewed (SB @ 56 QTc 509 msec Tele: No PAF recurrence or TdP) Assessment/Plan Problem List - Problems (1) Palpitations Code(s): R00.2 - PALPITATIONS (2) Rapid atrial fibrillation Code(s): I48.91 - UNSPECIFIED ATRIAL FIBRILLATION (3) Dyspnea on exertion Code(s): R06.09 - OTHER FORMS OF DYSPNEA (4) S/P mitral valve repair Code(s): Z98.890 - OTHER SPECIFIED POSTPROCEDURAL STATES (5) Diastolic dysfunction Code(s): I51.89 - OTHER ILL-DEFINED HEART DISEASES Assessment/Plan 05/08/2018 No ischemia, LVEF 53% 06/10/2019 Echo: Normal LV and RV size and fxn, mild RICHARD, mild TR RVSP 22 mmHg, [place], tr MR 1. PAFL, PAF s/p DCCV 2. Diastolic dysfunction 3. Mitral valve prolapse with severe regurgitation, post MV repair 4. H/o lap cholecystectomy for acute cholecystitis with resolved choledocholithiasis, chemical pancreatitis 5. Covid 19 negative PLAN: 1. Continue sotalol 80 bid with monitor QTC monitoring, Eliquis 5 bid, and losartan 25 qd 2. Educated on Afb/Afl, and possible ablation if frequent recurrences 3. D/c planning with f/u with Dr. Marcelo
--- NOTE | 2019-11-11 11:46 | DS ---
Physical Examination Vital Signs: Vital Signs Temperature 97.8 F 11/11/19 06:00 Pulse Rate 47 L 11/11/19 06:00 Respiratory Rate 18 11/11/19 06:00 Blood Pressure 118/73 11/11/19 06:00 O2 Sat by Pulse Oximetry (%) 100 11/11/19 06:00 Findings/Remarks: Pt seen/ examined chart reviewed comfortable No complains denies cp/sob Constitutional: Yes: No Distress Eyes: Yes: Conjunctiva Clear Neck: Yes: Supple Cardiovascular: Yes: Regular Rate and Rhythm Respiratory: Yes: CTA Bilaterally Gastrointestinal: Yes: Soft Edema: No Neurological: Yes: Alert Psychiatric: Yes: Alert Labs: CBC, BMP 11/08/19 05:33 11/08/19 05:33 Discharge Summary Problems reviewed: Yes Reason For Visit: ATRIAL FLUTTER Current Active Problems A-fib (Acute) Atrial flutter (Acute) Encounter for screening laboratory testing for COVID-19 virus (Acute) HTN (hypertension) (Acute) Hospital Course: Admitted for sob/ palpitation- Afluter underwent DCCV. In Sinus No complains Case d/w cardiology Stable for d/c with close f/u in office as well as cardiology-- Meds reconcilled Send prescriptions to [facility] per pts request. D/W Rn also Condition: Stable - Instructions Referrals: Adan Calderón MD [Primary Care Provider] - Kunal Marcelo MD [Staff Physician] - Disposition: HOME - Home Medications Comprehensive Discharge Medication List: Ambulatory Orders Apixaban [Eliquis -] 5 mg PO BID #60 tablet 09/14/19 Losartan Potassium [Cozaar -] 25 mg PO DAILY #30 tablet 11/11/19 Sotalol HCl [Betapace -] 80 mg PO BID 30 Days #60 tablet 11/11/19
[2019-11-11 13:16] VITALS: BP 140/75; PULSE 50; TEMP 97.9
== END 2019-11-11 14:14 | disposition home or self-care (01) | DRG 310 ==
LOC: JER 19:02 → JERBED 11-08 00:16 → J4S 11-08 15:15
PROVIDERS: ADMIT Internal Medicine; ATTEND Internal Medicine
PROC: 5A2204Z Restoration of Cardiac Rhythm, Single (ICD-10-PCS; principal; 2019-11-08 14:00)
DX: I48.0 Paroxysmal atrial fibrillation (principal); I48.92 Unspecified atrial flutter; R00.2 Palpitations; I10 Essential (primary) hypertension; E66.9 Obesity, unspecified; Z68.36 Body mass index [BMI] 36.0-36.9, adult; R06.02 Shortness of breath
CPT/HCPCS: 36415; 71045-TC-FY; 80053; 82550; 82553; 83735; 84443; 84484; 85025; 93005; 93010; 99285-25; U0003

== ENCOUNTER 2021-02-25 08:18 | Emergency (ER) | payer OTHER ==
[2021-02-25 08:50] VITALS: BP 150/89; PULSE 68; TEMP 98.7; BMI 35.9
[2021-02-25] MEDS ORDERED: IBUPROFEN 600 MG TABLET (FP) PO ONE ×2 (09:31→09:34)
== END 2021-02-25 11:39 | disposition home or self-care (01) ==
LOC: JER 08:18
DX: L03.116 Cellulitis of left lower limb (principal)
CPT/HCPCS: 73630-TC-LT; 99284-25

== ENCOUNTER 2021-04-26 17:04 | Emergency (ER) | payer OTHER ==
[2021-04-26 17:08] VITALS: BP 112/78; PULSE 79; TEMP 97.9; BMI 34.4
== END 2021-04-26 18:00 | disposition home or self-care (01) ==
LOC: JERFT 17:04
DX: S61.431A Puncture wound without foreign body of right hand, initial encounter (principal); W46.1XXA Contact with contaminated hypodermic needle, initial encounter; Y92.9 Unspecified place or not applicable
CPT/HCPCS: 99283-25

== ENCOUNTER 2021-10-29 13:56 | Inpatient (IN) | payer OTHER ==
[2021-10-29 14:29] VITALS: BMI 35.9
[2021-10-29 16:21] LABS: EOS % 1.4 % (0-4.5); HEMATOCRIT 42.6 % (35.4-49); HEMOGLOBIN 14.4 GM/dL (11.7-16.9); MCH 30.4 pg (25.7-33.7); MCHC 33.8 g/dl (32.0-35.9); MEAN PLT VOLUME 7.5 fl (7.5-11.1); MONO % 8.8 % (3.8-10.2); NEUT % 68.8 % (42.8-82.8); PLATELET COUNT 227 10^3/uL (134-434); RBC 4.73 M/mm3 (4.00-5.60); RDW 13.5 % (11.9-15.9); WHITE BLOOD COUNT 8.6 K/mm3 (4.0-10.0)
[2021-10-29 16:48] LABS: ALBUMIN 3.6 g/dl (3.4-5.0); BLOOD UREA NITROGEN 14.2 mg/dL (7-18); CALCIUM 8.5 mg/dL (8.5-10.1); MAGNESIUM 2.2 mg/dL (1.8-2.4)
[2021-10-29 16:51] LABS: CREATININE 1.4 mg/dL (0.55-1.3)
[2021-10-29 16:53] LABS: BILIRUBIN,TOTAL 0.5 mg/dL (0.2-1); TOT PROT 6.9 g/dl (6.4-8.2)
[2021-10-29] MEDS ORDERED: dilTIAZem HCL 50 MG/10 ML - 10 ML VIAL IVPUSH ONE (18:17)
[2021-10-29] MEDS ORDERED: dilTIAZem HCL 125 MG/25 ML - 25 ML VIAL ONE (18:58)
[2021-10-29] MEDS ORDERED: APIXABAN 5 MG TABLET ONE (23:10)
[2021-10-29] MEDS: APIXABAN 5 MG TABLET PO SCH (23:29)
[2021-10-29] MEDS: SOTALOL HCL 80 MG TABLET (FP) PO SCH (23:42)
[2021-10-30] MEDS: APIXABAN 5 MG TABLET PO SCH ×2 (09:23→21:25)
[2021-10-30] MEDS: SOTALOL HCL 80 MG TABLET (FP) PO SCH ×2 (09:23→21:25)
[2021-10-30 10:31] LABS: BASO % 0.5 % (0-2.0); EOS % 1.9 % (0-4.5); HEMATOCRIT 41.3 % (35.4-49); MCH 30.4 pg (25.7-33.7); MCHC 33.9 g/dl (32.0-35.9); MEAN CELL VOLUME 89.7 fl (80-96); MEAN PLT VOLUME 8.1 fl (7.5-11.1); MONO % 13.2 % (3.8-10.2); NEUT % 65.4 % (42.8-82.8); PLATELET COUNT 222 10^3/uL (134-434); RBC 4.61 M/mm3 (4.00-5.60); RDW 13.7 % (11.9-15.9); WHITE BLOOD COUNT 7.1 K/mm3 (4.0-10.0)
[2021-10-30 11:00] LABS: CALCIUM 8.5 mg/dL (8.5-10.1); TOT PROT 6.5 g/dl (6.4-8.2)
[2021-10-30 11:01] LABS: ALBUMIN 3.4 g/dl (3.4-5.0); BLOOD UREA NITROGEN 14.9 mg/dL (7-18)
[2021-10-30 11:03] LABS: BILIRUBIN,TOTAL 1.3 mg/dL (0.2-1)
[2021-10-30 11:04] LABS: CREATININE 1.2 mg/dL (0.55-1.3)
[2021-10-30] MEDS ORDERED: METOPROLOL TARTRATE 5 MG/5 ML VIAL IVPUSH PRN (13:34)
[2021-10-30] MEDS: ATORVASTATIN CA 40 MG TABLET (FP) PO SCH (21:25)
[2021-10-31] MEDS: APIXABAN 5 MG TABLET PO SCH ×2 (09:01→21:36)
[2021-10-31] MEDS: SOTALOL HCL 80 MG TABLET (FP) PO SCH ×2 (09:01→21:35)
[2021-10-31] MEDS ORDERED: SOTALOL HCL 80 MG TABLET (FP) PO ONE (15:45)
[2021-10-31] MEDS: ATORVASTATIN CA 40 MG TABLET (FP) PO SCH (21:35)
[2021-10-31] MEDS ORDERED: SOTALOL HCL 80 MG TABLET (FP) PO SCH (22:00)
[2021-11-01] MEDS: SOTALOL HCL 80 MG TABLET (FP) PO SCH (09:30)
[2021-11-01] MEDS: APIXABAN 5 MG TABLET PO SCH (09:30)
[2021-11-01 15:47] VITALS: BP 138/74; PULSE 81; TEMP 98.6
[2021-11-02] MEDS ORDERED: LOSARTAN POTASSIUM 25 MG TABLET PO SCH (10:00)
== END 2021-11-01 18:45 | disposition home or self-care (01) | DRG 308 ==
LOC: JER 13:56 → JERBED 16:49 → J4S 10-30 05:09
PROVIDERS: ADMIT Internal Medicine; ATTEND Internal Medicine
DX: I48.0 Paroxysmal atrial fibrillation (principal); U07.1 COVID-19; I48.92 Unspecified atrial flutter; Z79.01 Long term (current) use of anticoagulants; E66.01 Morbid (severe) obesity due to excess calories; Z68.35 Body mass index [BMI] 35.0-35.9, adult
CPT/HCPCS: 36415; 70450-TC; 71045-TC-FY; 80053; 80061; 82272; 82550; 82553; 82728; 83615; 83690; 83735; 84443; 84484; 85025; 85379; 86140; 93005; 93010; 99285-25; C9803-CS; U0003; U0005

== ENCOUNTER 2021-12-09 19:01 | Emergency (ER) | payer OTHER ==
[2021-12-09 19:27] VITALS: BP 130/87; PULSE 68; RESP 18; TEMP 98.4; BMI 35.9
[2021-12-09] MEDS ORDERED: IBUPROFEN 400 MG TABLET (FP) PO ONE ×2 (20:15→20:29)
[2021-12-09 20:35] LABS: BASO % 1.1 % (0-2.0); EOS % 3.1 % (0-4.5); HEMATOCRIT 41.8 % (35.4-49); HEMOGLOBIN 13.6 GM/dL (11.7-16.9); LYMPH % 20.6 % (8-40); MCH 29.7 pg (25.7-33.7); MCHC 32.6 g/dl (32.0-35.9); MEAN CELL VOLUME 91.2 fl (80-96); MEAN PLT VOLUME 8.5 fl (7.5-11.1); MONO % 7.8 % (3.8-10.2); NEUT % 67.4 % (42.8-82.8); PLATELET COUNT 190 10^3/uL (134-434); RBC 4.58 M/mm3 (4.00-5.60); RDW 13.9 % (11.9-15.9); WHITE BLOOD COUNT 7.5 K/mm3 (4.0-10.0)
[2021-12-09 20:56] LABS: ALBUMIN 3.7 g/dl (3.4-5.0); BLOOD UREA NITROGEN 8.2 mg/dL (7-18); CALCIUM 8.4 mg/dL (8.5-10.1)
[2021-12-09 20:59] LABS: CREATININE 1.1 mg/dL (0.55-1.3)
[2021-12-09 21:01] LABS: BILIRUBIN,TOTAL 0.6 mg/dL (0.2-1); TOT PROT 7.1 g/dl (6.4-8.2)
[2021-12-09] MEDS ORDERED: ACETAMINOPHEN 500 MG TABLET (FP) PO ONE (21:58)
[2021-12-09] MEDS ORDERED: ACETAMINOPHEN 325 MG TABLET (FP) ONE (22:04)
== END 2021-12-09 22:40 | disposition home or self-care (01) ==
LOC: JER 19:01
DX: M25.571 Pain in right ankle and joints of right foot (principal)
CPT/HCPCS: 36415; 80053; 85025; 99283-25

== ENCOUNTER 2021-12-30 10:35 | Emergency (ER) | payer OTHER ==
[2021-12-30 10:42] VITALS: BP 126/83; PULSE 61; RESP 20; TEMP 97.5; BMI 35.9
[2021-12-30] MEDS ORDERED: predniSONE 20 MG TABLET (UD) PO ONE (11:07)
[2021-12-30] MEDS ORDERED: predniSONE 20 MG TABLET (UD) ONE (11:09)
== END 2021-12-30 11:29 | disposition home or self-care (01) ==
LOC: JER 10:35
DX: M10.071 Idiopathic gout, right ankle and foot (principal)
CPT/HCPCS: 99283-25

== ENCOUNTER 2023-01-10 16:07 | Inpatient (IN) | payer OTHER ==
[2023-01-10] MEDS ORDERED: ONDANSETRON 4 MG/2 ML VIAL ONE ×2 (16:25→17:58)
[2023-01-10 16:26] LABS: EOS % 2.3 % (0-4.5); HEMATOCRIT 44.6 % (35.4-49); HEMOGLOBIN 15.2 GM/dL (11.7-16.9); LYMPH % 24.3 % (8-40); MCH 30.9 pg (25.7-33.7); MEAN CELL VOLUME 90.8 fl (80-96); MEAN PLT VOLUME 8.5 fl (7.5-11.1); NEUT % 64.4 % (42.8-82.8); PLATELET COUNT 228 10^3/uL (134-434); RBC 4.91 M/mm3 (4.00-5.60); RDW 13.9 % (11.9-15.9); WHITE BLOOD COUNT 11.4 K/mm3 (4.0-10.0)
[2023-01-10] MEDS ORDERED: ONDANSETRON 4 MG/2 ML VIAL IVPUSH ONE ×2 (16:32→17:43)
[2023-01-10 16:34] LABS: INR 1.23 (0.83-1.09); PROTHROMBIN TIME (PATIENT) 14.2 SEC (9.7-13.0)
[2023-01-10 16:37] LABS: ACTIVATED PTT 31.5 SECONDS (25.2-36.5)
[2023-01-10 16:42] LABS: POTASSIUM 4.6 mmol/L (3.5-5.1)
[2023-01-10 16:45] LABS: CALCIUM 8.5 mg/dL (8.5-10.1)
[2023-01-10 16:46] LABS: ALBUMIN 3.8 g/dl (3.4-5.0)
[2023-01-10 16:48] LABS: BLOOD UREA NITROGEN 13.1 mg/dL (7-18)
[2023-01-10 16:49] LABS: CREATININE 1.2 mg/dL (0.55-1.3)
[2023-01-10 16:51] LABS: TOT PROT 7.6 g/dl (6.4-8.2)
[2023-01-10 16:52] LABS: BILIRUBIN,TOTAL 0.6 mg/dL (0.2-1)
[2023-01-10] MEDS ORDERED: METOCLOPRAMIDE HCL INJECTION 10 MG/2 ML VIAL IVPUSH ONE (17:10)
[2023-01-10] MEDS ORDERED: METOCLOPRAMIDE HCL INJECTION 10 MG/2 ML VIAL ONE (17:13)
[2023-01-10 17:16] LABS: VENOUS BASE EXCESS -0.7 mmol/L (-2-2); VENOUS O2 SATURATION 97.3 % (70-80); VENOUS PCO2 45.5 mmHg (38-52); VENOUS PH 7.359 (7.310-7.410)
[2023-01-10] MEDS ORDERED: TRIMETHOBENZAMIDE HCL 200MG/2ML INJ IM ONE ×2 (17:43→17:58)
[2023-01-10] MEDS ORDERED: PROCHLORPERAZINE INJECTION 10 MG/2 ML VIAL IVPB ONE (18:59)
[2023-01-10] MEDS ORDERED: PROCHLORPERAZINE INJECTION 10 MG/2 ML VIAL ONE (19:00)
[2023-01-10 19:11] LABS: URINE APPEARANCE CLEAR; URINE BILIRUBIN NEGATIVE (NEGATIVE); URINE COLOR YELLOW; URINE GLUCOSE (UA) NEGATIVE (NEGATIVE); URINE KETONE NEGATIVE (NEGATIVE); URINE LEUK ESTERASE NEGATIVE (NEGATIVE); URINE NITRITE NEGATIVE (NEGATIVE); URINE PROTEIN NEGATIVE (NEGATIVE); URINE UROBILINOGEN 0.2 mg/dL (0.2-1.0)
[2023-01-10] MEDS ORDERED: ONDANSETRON 4 MG/2 ML VIAL IVPUSH PRN (20:28)
[2023-01-10 21:13] VITALS: BMI 36.6
[2023-01-11] MEDS ORDERED: ASPIRIN 81 MG CHEWABLE TABLETS PO ONE (00:35)
[2023-01-11 07:41] LABS: BASO % 0.2 % (0-2.0); HEMATOCRIT 42.6 % (35.4-49); HEMOGLOBIN 14.3 GM/dL (11.7-16.9); MCH 31.3 pg (25.7-33.7); MCHC 33.6 g/dl (32.0-35.9); MEAN PLT VOLUME 8.5 fl (7.5-11.1); MONO % 3.4 % (3.8-10.2); NEUT % 89.4 % (42.8-82.8); PLATELET COUNT 181 10^3/uL (134-434); RBC 4.58 M/mm3 (4.00-5.60); RDW 13.7 % (11.9-15.9); WHITE BLOOD COUNT 11.8 K/mm3 (4.0-10.0)
[2023-01-11 08:36] LABS: ALBUMIN 3.7 g/dl (3.4-5.0); BILIRUBIN,TOTAL 0.7 mg/dL (0.2-1); BLOOD UREA NITROGEN 11.5 mg/dL (7-18); CALCIUM 8.6 mg/dL (8.5-10.1); POTASSIUM 4.3 mmol/L (3.5-5.1); TOT PROT 7.1 g/dl (6.4-8.2)
[2023-01-11] MEDS: SOTALOL HCL 80 MG TABLET (FP) PO SCH ×2 (10:20→21:31)
[2023-01-11] MEDS: ASPIRIN 81 MG CHEWABLE TABLETS PO SCH (10:20)
[2023-01-11] MEDS: LOSARTAN POTASSIUM 25 MG TABLET PO SCH (10:20)
[2023-01-11] MEDS: APIXABAN 5 MG TABLET PO SCH ×2 (10:20→21:34)
[2023-01-11] MEDS: ATORVASTATIN CA 40 MG TABLET (FP) PO SCH (21:34)
[2023-01-11] MEDS ORDERED: ATORVASTATIN CA 40 MG TABLET (FP) PO SCH (22:00)
[2023-01-12] MEDS: SOTALOL HCL 80 MG TABLET (FP) PO SCH ×2 (10:01→22:05)
[2023-01-12] MEDS: ASPIRIN 81 MG CHEWABLE TABLETS PO SCH (10:01)
[2023-01-12] MEDS: APIXABAN 5 MG TABLET PO SCH ×2 (10:01→22:06)
[2023-01-12] MEDS: LOSARTAN POTASSIUM 25 MG TABLET PO SCH (10:01)
[2023-01-12] MEDS: ATORVASTATIN CA 40 MG TABLET (FP) PO SCH (22:06)
[2023-01-13] MEDS: METOCLOPRAMIDE HCL 10 MG/10 ML UNIT DOSE CUP PO SCH ×2 (06:56→12:27)
[2023-01-13] MEDS: APIXABAN 5 MG TABLET PO SCH (09:30)
[2023-01-13] MEDS: SOTALOL HCL 80 MG TABLET (FP) PO SCH (09:30)
[2023-01-13] MEDS: ASPIRIN 81 MG CHEWABLE TABLETS PO SCH (09:30)
[2023-01-13] MEDS: LOSARTAN POTASSIUM 25 MG TABLET PO SCH (09:30)
[2023-01-13] MEDS ORDERED: NICARDIPINE 25 MG in DEXTROSE 5%-WATER - 240 ML IVPB SCH ×2 (11:45→11:55)
[2023-01-13] MEDS ORDERED: niCARdipine HCL 25 MG/10 ML AMPUL IVPB ONE (11:50)
[2023-01-13 11:58] VITALS: RESP 20
[2023-01-13] MEDS ORDERED: FACTOR XA,INACTIVATED - BOLUS 400 MG/40 ML VIAL IVPB ONE (12:45)
[2023-01-13] MEDS ORDERED: SODIUM CHLORIDE 50 ML IVPB ONE ×2 (12:46→14:31)
[2023-01-13] MEDS ORDERED: FACTOR XA,INACTIVATED-ZHZO 480 MG/48 ML VIAL IVPB ONE (13:00)
[2023-01-13 13:43] VITALS: BP 141/83; PULSE 67; TEMP 98.3
== END 2023-01-13 14:12 | disposition short-term general hospital (02) | DRG 64 ==
LOC: JER 16:07 → JERBED 18:04 → J4W 20:57 → JICU 01-13 11:25
PROVIDERS: ADMIT Internal Medicine; ATTEND Internal Medicine
DX: I63.89 Other cerebral infarction (principal); I61.8 Other nontraumatic intracerebral hemorrhage; I48.92 Unspecified atrial flutter; R29.712 NIHSS score 12; I10 Essential (primary) hypertension; R13.11 Dysphagia, oral phase; R11.2 Nausea with vomiting, unspecified; H55.09 Other forms of nystagmus; I69.320 Aphasia following cerebral infarction; E66.8 Other obesity; I48.0 Paroxysmal atrial fibrillation; M10.9 Gout, unspecified; E78.5 Hyperlipidemia, unspecified; Z68.36 Body mass index [BMI] 36.0-36.9, adult; K59.00 Constipation, unspecified; M54.59 Other low back pain; Z95.2 Presence of prosthetic heart valve; R47.1 Dysarthria and anarthria; Z79.01 Long term (current) use of anticoagulants; I69.122 Dysarthria following nontraumatic intracerebral hemorrhage
CPT/HCPCS: 0241U-QW; 36415; 70450-TC; 70496-TC; 70498-TC; 70551-TC; 71045-TC-FY; 74230-TC-FY; 80053; 80061; 80307; 81003; 82550; 82553; 82803; 82962; 83036; 83605; 84484; 85025; 85610; 85730; 86850; 86900; 86901; 92611-GN; 93005; 93010; 93880-TC; 97116-GP; 97162-GP; 99285-25; J7169